=== PATIENT | female | born 1965 ===

== ENCOUNTER 2018-03-21 16:24 | Inpatient (IN) ==
[2018-03-21] MEDS ORDERED: PIPERACILLIN/TAZOBACTAM 3,375 MG in SODIUM CHLORIDE 0.9% 100 ML IV STA (16:51)
[2018-03-21] MEDS ORDERED: ACETAMINOPHEN 325 MG TABLET PO PRN (19:50)
[2018-03-21] MEDS ORDERED: GLUCAGON 1 MG VIAL IM PRN (19:50)
[2018-03-21] MEDS ORDERED: DEXTROSE 50% 25 GM/50 ML VIAL IV PRN (19:50)
[2018-03-21] MEDS ORDERED: ONDANSETRON 4 MG/2 ML VIAL IV PRN (19:50)
[2018-03-21] MEDS: INSULIN LISPRO 100 UNIT/ML SUBCUT SCH ×2 (20:27→23:28)
[2018-03-21] MEDS: MORPHINE 4 MG/1 ML VIAL IV PRN (21:15)
[2018-03-21] MEDS: PIPERACILLIN/TAZOBACTAM 3,375 MG in SODIUM CHLORIDE 0.9% 100 ML IV SCH (21:19)
[2018-03-22] MEDS: INSULIN LISPRO 100 UNIT/ML SUBCUT SCH ×4 (02:27→12:35)
[2018-03-22] MEDS: PIPERACILLIN/TAZOBACTAM 3,375 MG in SODIUM CHLORIDE 0.9% 100 ML IV SCH (03:55)
[2018-03-22] MEDS ORDERED: LIDOCAINE 1%/EPI INJ 20 ML VIAL ONE (06:13)
[2018-03-22] MEDS ORDERED: BUPIVACAINE MPF 0.25% /EPI 30 ML VIAL ONE (06:13)
[2018-03-22] MEDS ORDERED: TISSUE ADHESIVE 1 EACH APPLICATOR TOP ONE (06:13)
[2018-03-22 06:39] LABS: Osmolality,Calculated 292.7 MOS/KG (273-304); Potassium 4.8 MMOL/L (3.5-5.1)
[2018-03-22] MEDS ORDERED: SUGAMMADEX 200 MG/2 ML VIAL IV ONE (07:12)
[2018-03-22] MEDS ORDERED: PROPOFOL 200 MG/20 ML VIAL IV ONE (08:04)
[2018-03-22] MEDS ORDERED: ROCURONIUM 100 MG/10 ML VIAL IV ONE (08:04)
[2018-03-22] MEDS ORDERED: fentaNYL 100 MCG/2 ML VIAL ONE (08:04)
[2018-03-22] MEDS ORDERED: ONDANSETRON 4 MG/2 ML VIAL ONE (08:04)
[2018-03-22] MEDS ORDERED: SEVOFLURANE 1 UNIT/15 MINUTE INH ONE (08:04)
[2018-03-22] MEDS ORDERED: ONDANSETRON 4 MG/2 ML VIAL IV PRN (08:14)
[2018-03-22] MEDS: MORPHINE 10 MG/1 ML VIAL IV PRN ×2 (08:20→08:25)
[2018-03-22] MEDS ORDERED: PANTOPRAZOLE 40 MG TABLET PO SCH (09:00)
[2018-03-22] MEDS ORDERED: ASPIRIN EC 81 MG TABLET PO SCH (09:09)
[2018-03-22] MEDS ORDERED: MAGNESIUM OXIDE 400 MG TABLET PO SCH (09:09)
[2018-03-22] MEDS ORDERED: amLODIPine 10 MG TABLET PO SCH (09:09)
[2018-03-22] MEDS ORDERED: CARVEDILOL 25 MG TABLET PO SCH (09:09)
[2018-03-22] MEDS ORDERED: CALCIUM ACETATE 667 MG CAPSULE PO SCH (09:09)
[2018-03-22] MEDS ORDERED: IRBESARTAN 150 MG TABLET PO SCH (09:09)
[2018-03-22] MEDS ORDERED: ATORVASTATIN 40 MG TABLET PO SCH (09:09)
[2018-03-22] MEDS ORDERED: ISOSORBIDE MONONITRATE 30 MG TABLET PO SCH (09:09)
[2018-03-22] MEDS ORDERED: TERAZOSIN 2 MG CAPSULE PO SCH (09:09)
[2018-03-22] MEDS: MORPHINE 4 MG/1 ML VIAL IV PRN (09:40)
[2018-03-22] MEDS: CALCIUM ACETATE 667 MG CAPSULE PO SCH ×2 (11:01→11:04)
[2018-03-22 12:42] VITALS: BP 143/59
[2018-03-22] MEDS ORDERED: INSULIN GLARGINE 100 UNIT/ML SUBCUT SCH (21:00)
[2018-03-23] MEDS ORDERED: HEPARIN 5,000 UNIT/1 ML VIAL SUBCUT SCH (10:00)
== END 2018-03-22 15:45 | disposition home or self-care (01) | DRG 341 ==
LOC: EDBD → EDUNIT# → N.ED 16:24 → N.EDINP 18:09 → N.3E 19:29
PROVIDERS: ADMIT Surgery; ATTEND Surgery

== ENCOUNTER 2018-11-08 11:20 | Observation (INO) ==
[2018-11-08 18:00] LABS: Basophils % 0.4 % (0.0-0.8); Eosinophils % 0.6 % (0.00-10.9); Hematocrit 31.3 VOL% (35.7-47.0); Hemoglobin 9.9 GM/DL (12.0-16.0); Immature Granulocytes % 0.4 %; Immature Granulocytes Absolute 0.03 #; Lymphocytes # 1.4 10*3/uL (1.4-4.0); Mean Corpuscular HGB Conc 31.6 GM/DL (32-36); Mean Corpuscular Hemoglobin 31 PG (27-34); Mean Corpuscular Volume 99.1 FL (87-102); Mean Platelet Volume 11.5 FL (9.6-12.0); Monocytes # 0.5 10*3/uL (0.11-0.8); Monocytes % 7.2 % (1.7-12.7); Neutrophils # 5.2 10*3/uL (1.4-7.4); Neutrophils % 72.4 % (38.7-73.9); Platelet Count 70 T/CUMM (130-400); Red Blood Count 3.16 MC/CUMM (3.8-5.5); Red Cell Distribution Width 14.3 % (9.3-17.3); White Blood Count 7.2 T/CUMM (4-12)
[2018-11-08] MEDS ORDERED: CALCIUM ACETATE 667 MG CAPSULE PO SCH (18:00)
[2018-11-08 18:28] LABS: Platelet Estimate Decreased
[2018-11-08] MEDS ORDERED: OSELTAMIVIR 30 MG CAPSULE PO ONE (18:30)
[2018-11-08 19:26] LABS: Calcium 8.4 MG/DL (8.5-10.1); Osmolality,Calculated 293.8 MOS/KG (273-304); Potassium 4.3 MMOL/L (3.5-5.1)
[2018-11-08] MEDS: INSULIN GLARGINE 100 UNIT/ML SUBCUT SCH (20:50)
[2018-11-08] MEDS: CARVEDILOL 25 MG TABLET PO SCH (20:54)
[2018-11-08] MEDS: ATORVASTATIN 40 MG TABLET PO SCH (20:54)
[2018-11-08] MEDS ORDERED: ACETAMINOPHEN 500 MG TABLET PO PRN (21:29)
[2018-11-08] MEDS: ALBUTEROL/IPRATROPIUM 3 ML NEB RESP TX SCH (23:35)
[2018-11-09] MEDS: ALBUTEROL/IPRATROPIUM 3 ML NEB RESP TX SCH ×5 (03:45→21:20)
[2018-11-09] MEDS: CALCIUM ACETATE 667 MG CAPSULE PO SCH ×3 (08:56→19:16)
[2018-11-09] MEDS: ASPIRIN EC 81 MG TABLET PO SCH (08:56)
[2018-11-09] MEDS: ISOSORBIDE MONONITRATE 30 MG TABLET PO SCH (08:56)
[2018-11-09] MEDS: amLODIPine 10 MG TABLET PO SCH (08:56)
[2018-11-09] MEDS: CARVEDILOL 25 MG TABLET PO SCH ×2 (08:57→21:40)
[2018-11-09] MEDS: PANTOPRAZOLE 40 MG TABLET PO SCH (08:57)
[2018-11-09] MEDS: LOSARTAN 50 MG TABLET PO SCH (08:57)
[2018-11-09] MEDS: TERAZOSIN 2 MG CAPSULE PO SCH (08:57)
[2018-11-09] MEDS: MAGNESIUM OXIDE 400 MG TABLET PO SCH (08:57)
[2018-11-09] MEDS ORDERED: OSELTAMIVIR 30 MG CAPSULE PO SCH (18:00)
[2018-11-09] MEDS: INSULIN GLARGINE 100 UNIT/ML SUBCUT SCH (21:39)
[2018-11-09] MEDS: ATORVASTATIN 40 MG TABLET PO SCH (21:40)
[2018-11-10] MEDS: ALBUTEROL/IPRATROPIUM 3 ML NEB RESP TX SCH ×4 (00:41→11:09)
[2018-11-10 06:02] LABS: Risk Ratio 4.04; VLDL CHOLESTEROL 41.2 MG/DL
[2018-11-10] MEDS: ISOSORBIDE MONONITRATE 30 MG TABLET PO SCH (10:10)
[2018-11-10] MEDS: LOSARTAN 50 MG TABLET PO SCH (10:10)
[2018-11-10] MEDS: CALCIUM ACETATE 667 MG CAPSULE PO SCH ×2 (10:10→13:00)
[2018-11-10] MEDS: ASPIRIN EC 81 MG TABLET PO SCH (10:10)
[2018-11-10] MEDS: MAGNESIUM OXIDE 400 MG TABLET PO SCH (10:11)
[2018-11-10] MEDS: TERAZOSIN 2 MG CAPSULE PO SCH (10:11)
[2018-11-10] MEDS: PANTOPRAZOLE 40 MG TABLET PO SCH (10:11)
[2018-11-10] MEDS: amLODIPine 10 MG TABLET PO SCH (10:11)
[2018-11-10] MEDS: CARVEDILOL 25 MG TABLET PO SCH (10:11)
[2018-11-10 12:18] VITALS: BP 145/65
== END 2018-11-10 13:59 | disposition home or self-care (01) ==
LOC: N.5E → SUATTDRO 13:38
PROVIDERS: ADMIT Internal Medicine; ATTEND Hospitalist

== ENCOUNTER 2019-10-02 15:16 | Inpatient (IN) ==
[2019-10-02 16:40] LABS: Blood Urea Nitrogen 55 MG/DL (7-18); Calcium 9.2 MG/DL (8.5-10.1); Estimated Glom Filtration Rate 3 ML/MIN; Glucose 82 MG/DL (74-106); Troponin I 0.475 NG/ML (0.00-0.045)
[2019-10-02 16:45] LABS: INR 1.3; PT Patient Result 14.1 SECS (9.6-12.2); Partial Thromboplastin Time 26.9 SECS (20.8-36.0)
[2019-10-02] MEDS ORDERED: LEVOFLOXACIN INJ 750 MG in PREMIX 1 EACH IV STA (16:49)
[2019-10-02 17:02] LABS: Barbiturates Screen,Urine Negative (Negative); Benzodiazepines Screen,Urine Negative (Negative); Cannabinoid Screen,Urine Negative (Negative); Opiate Screen,Urine Positive (Negative); Phencyclidine Screen,Urine Negative (Negative)
[2019-10-02] MEDS ORDERED: ONDANSETRON 4 MG/2 ML VIAL IV PRN (18:31)
[2019-10-02] MEDS ORDERED: ACETAMINOPHEN 325 MG TABLET PO PRN (18:31)
[2019-10-02] MEDS ORDERED: DEXTROSE 50% 25 GM/50 ML VIAL IV PRN (18:31)
[2019-10-02] MEDS ORDERED: GLUCAGON 1 MG VIAL IM PRN (18:31)
[2019-10-02] MEDS ORDERED: ALBUTEROL 2.5 MG/3 ML NEB RESP TX PRN (18:31)
[2019-10-02] MEDS ORDERED: DEXTROSE 10% 250 ML BAG IV PRN (19:31)
[2019-10-02] MEDS: ALBUTEROL/IPRATROPIUM 3 ML NEB RESP TX SCH (21:20)
[2019-10-02] MEDS: ENOXAPARIN 30 MG/0.3 ML SYRINGE SUBCUT SCH (21:25)
[2019-10-02] MEDS: INSULIN REGULAR 100 UNIT/ML SUBCUT SCH (22:20)
[2019-10-03] MEDS: ALBUTEROL/IPRATROPIUM 3 ML NEB RESP TX SCH ×4 (01:00→19:13)
[2019-10-03] MEDS: INSULIN REGULAR 100 UNIT/ML SUBCUT SCH ×4 (07:30→23:47)
[2019-10-03 07:43] LABS: Basophils # 0.1 10*3/uL (0.0-0.2); Eosinophils # 0.5 10*3/uL (0.0-0.87); Eosinophils % 7.9 % (0.00-10.9); Hematocrit 33.7 VOL% (35.7-47.0); Hemoglobin 10.8 GM/DL (12.0-16.0); Immature Granulocytes % 0.8 %; Immature Granulocytes Absolute 0.05 #; Lymphocytes # 0.9 10*3/uL (1.4-4.0); Lymphocytes % 14.4 % (21.3-54.2); Mean Corpuscular Volume 102.1 FL (87-102); Mean Platelet Volume 10.9 FL (9.6-12.0); Monocytes % 5.6 % (1.7-12.7); NRBC # 0.07 10*3/uL; Neutrophils % 70.3 % (38.7-73.9); White Blood Count 6.2 T/CUMM (4-12)
[2019-10-03 07:53] LABS: Platelet Count 83 T/CUMM (130-400)
[2019-10-03 07:57] LABS: Albumin 2.7 G/DL (3.4-5.0); Osmolality,Calculated 288.8 MOS/KG (273-304); Total Protein 6.5 G/DL (6.4-8.3)
[2019-10-03 08:17] LABS: Hypochromasia Slight; Macrocytosis 1+; Platelet Estimate Decreased; Polychromasia Slight
[2019-10-03] MEDS: PANTOPRAZOLE 40 MG TABLET PO SCH (09:20)
[2019-10-03] MEDS ORDERED: CYCLOBENZAPRINE 10 MG TABLET PO PRN (11:47)
[2019-10-03] MEDS ORDERED: CALCIUM ACETATE 667 MG CAPSULE PO SCH (12:00)
[2019-10-03] MEDS ORDERED: hydrALAZINE 20 MG/1 ML VIAL IV PRN (12:22)
[2019-10-03] MEDS: cefTRIAXone 1,000 MG in SYRINGE 1 EACH IV SCH (12:36)
[2019-10-03] MEDS: CALCIUM ACETATE 667 MG CAPSULE PO SCH ×2 (12:36→17:30)
[2019-10-03] MEDS ORDERED: AZITHROMYCIN 250 MG TABLET PO ONE (13:00)
[2019-10-03] MEDS ORDERED: FUROSEMIDE 40 MG/4 ML VIAL IV SCH (16:00)
[2019-10-03] MEDS: ENOXAPARIN 30 MG/0.3 ML SYRINGE SUBCUT SCH (20:50)
[2019-10-03] MEDS ORDERED: INSULIN GLARGINE 100 UNIT/ML SUBCUT SCH (21:00)
[2019-10-03] MEDS: carvediloL 25 MG TABLET PO SCH (21:10)
[2019-10-04] MEDS: ALBUTEROL/IPRATROPIUM 3 ML NEB RESP TX SCH ×4 (00:54→20:19)
[2019-10-04] MEDS: INSULIN REGULAR 100 UNIT/ML SUBCUT SCH ×7 (01:35→23:56)
[2019-10-04 06:43] LABS: Basophils # 0.1 10*3/uL (0.0-0.2); Basophils % 0.8 % (0.0-0.8); Eosinophils # 0.4 10*3/uL (0.0-0.87); Eosinophils % 6.7 % (0.00-10.9); Hematocrit 32.7 VOL% (35.7-47.0); Hemoglobin 10.8 GM/DL (12.0-16.0); Immature Granulocytes % 0.8 %; Immature Granulocytes Absolute 0.05 #; Lymphocytes # 0.8 10*3/uL (1.4-4.0); Lymphocytes % 12.1 % (21.3-54.2); Mean Corpuscular Volume 99.7 FL (87-102); Mean Platelet Volume 10.9 FL (9.6-12.0); Monocytes % 6.2 % (1.7-12.7); NRBC # 0.11 10*3/uL; Neutrophils % 73.4 % (38.7-73.9); Platelet Count 97 T/CUMM (130-400); Red Blood Count 3.28 MC/CUMM (3.8-5.5); White Blood Count 6.3 T/CUMM (4-12)
[2019-10-04 06:55] LABS: Calcium 9.2 MG/DL (8.5-10.1); Osmolality,Calculated 275.4 MOS/KG (273-304)
[2019-10-04 07:30] LABS: Band Neutrophils 1 % (0-10); Eosinophils 7 % (0-10); Lymphocytes 10 % (20-55); Platelet Estimate Decreased; Segmented Neutrophils 77 % (50-85); Total Cells Counted 100
[2019-10-04 07:31] LABS: Anisocytosis 2+; Burr Cells Few; Macrocytosis 1+; Poikilocytosis Slight
[2019-10-04] MEDS: ASPIRIN EC 81 MG TABLET PO SCH (09:00)
[2019-10-04] MEDS: carvediloL 25 MG TABLET PO SCH ×2 (09:00→20:50)
[2019-10-04] MEDS: CALCIUM ACETATE 667 MG CAPSULE PO SCH ×3 (09:00→16:52)
[2019-10-04] MEDS: LOSARTAN 50 MG TABLET PO SCH (09:00)
[2019-10-04] MEDS: TERAZOSIN 2 MG CAPSULE PO SCH (09:00)
[2019-10-04] MEDS ORDERED: LEVOFLOXACIN INJ 500 MG in PREMIX 1 EACH IV SCH (09:00)
[2019-10-04] MEDS: amLODIPine 10 MG TABLET PO SCH (09:00)
[2019-10-04] MEDS: PANTOPRAZOLE 40 MG TABLET PO SCH (09:01)
[2019-10-04] MEDS: MAGNESIUM OXIDE 400 MG TABLET PO SCH ×2 (09:01→09:11)
[2019-10-04] MEDS: AZITHROMYCIN 250 MG TABLET PO SCH (09:01)
[2019-10-04] MEDS: ISOSORBIDE MONONITRATE 30 MG TABLET PO SCH (09:01)
[2019-10-04] MEDS: cefTRIAXone 1,000 MG in SYRINGE 1 EACH IV SCH (12:52)
[2019-10-04] MEDS: ENOXAPARIN 30 MG/0.3 ML SYRINGE SUBCUT SCH (20:04)
[2019-10-04] MEDS: DICLOFENAC 1% GEL 100 GM TUBE TOP SCH (23:46)
[2019-10-05] MEDS: ALBUTEROL/IPRATROPIUM 3 ML NEB RESP TX SCH ×4 (00:57→20:48)
[2019-10-05 05:59] LABS: Basophils # 0.1 10*3/uL (0.0-0.2); Basophils % 1.2 % (0.0-0.8); Eosinophils # 0.3 10*3/uL (0.0-0.87); Hematocrit 33.1 VOL% (35.7-47.0); Hemoglobin 10.9 GM/DL (12.0-16.0); Immature Granulocytes % 0.5 %; Immature Granulocytes Absolute 0.02 #; Lymphocytes # 0.7 10*3/uL (1.4-4.0); Lymphocytes % 16.2 % (21.3-54.2); Mean Corpuscular HGB Conc 32.9 GM/DL (32-36); Mean Corpuscular Volume 100.3 FL (87-102); Mean Platelet Volume 10.2 FL (9.6-12.0); Monocytes % 9.5 % (1.7-12.7); NRBC # 0.03 10*3/uL; Neutrophils % 65.6 % (38.7-73.9); Platelet Count 87 T/CUMM (130-400); Red Cell Distribution Width 15.5 % (9.3-17.3); White Blood Count 4.3 T/CUMM (4-12)
[2019-10-05 06:16] LABS: Calcium 9.1 MG/DL (8.5-10.1)
[2019-10-05 06:30] LABS: Band Neutrophils 1 % (0-10); Eosinophils 13 % (0-10); Lymphocytes 14 % (20-55); Segmented Neutrophils 69 % (50-85); Total Cells Counted 100
[2019-10-05 06:31] LABS: Anisocytosis 1+; Platelet Estimate Decreased; Polychromasia Few
[2019-10-05] MEDS: INSULIN REGULAR 100 UNIT/ML SUBCUT SCH ×4 (08:29→21:04)
[2019-10-05] MEDS: ISOSORBIDE MONONITRATE 30 MG TABLET PO SCH (09:00)
[2019-10-05] MEDS: CALCIUM ACETATE 667 MG CAPSULE PO SCH ×3 (09:00→17:40)
[2019-10-05] MEDS: PANTOPRAZOLE 40 MG TABLET PO SCH (09:00)
[2019-10-05] MEDS: LOSARTAN 50 MG TABLET PO SCH (09:00)
[2019-10-05] MEDS: amLODIPine 10 MG TABLET PO SCH (09:00)
[2019-10-05] MEDS: MAGNESIUM OXIDE 400 MG TABLET PO SCH (09:00)
[2019-10-05] MEDS: TERAZOSIN 2 MG CAPSULE PO SCH (09:00)
[2019-10-05] MEDS: ASPIRIN EC 81 MG TABLET PO SCH (09:00)
[2019-10-05] MEDS: carvediloL 25 MG TABLET PO SCH ×2 (09:01→20:59)
[2019-10-05] MEDS: AZITHROMYCIN 250 MG TABLET PO SCH (09:01)
[2019-10-05] MEDS: DICLOFENAC 1% GEL 100 GM TUBE TOP SCH ×2 (12:46→15:27)
[2019-10-05] MEDS: cefTRIAXone 1,000 MG in SYRINGE 1 EACH IV SCH (12:47)
[2019-10-05] MEDS: ENOXAPARIN 30 MG/0.3 ML SYRINGE SUBCUT SCH (21:03)
[2019-10-06] MEDS: DICLOFENAC 1% GEL 100 GM TUBE TOP SCH ×3 (00:01→16:16)
[2019-10-06] MEDS: ALBUTEROL/IPRATROPIUM 3 ML NEB RESP TX SCH ×3 (00:14→14:07)
[2019-10-06 05:08] LABS: Basophils % 0.6 % (0.0-0.8); Eosinophils # 0.3 10*3/uL (0.0-0.87); Eosinophils % 6.3 % (0.00-10.9); Hematocrit 31.3 VOL% (35.7-47.0); Hemoglobin 10.2 GM/DL (12.0-16.0); Immature Granulocytes % 0.4 %; Immature Granulocytes Absolute 0.02 #; Lymphocytes # 1.1 10*3/uL (1.4-4.0); Lymphocytes % 23.1 % (21.3-54.2); Mean Corpuscular HGB Conc 32.6 GM/DL (32-36); Mean Platelet Volume 10.7 FL (9.6-12.0); Monocytes % 10.7 % (1.7-12.7); NRBC # 0.03 10*3/uL; Neutrophils % 58.9 % (38.7-73.9); Platelet Count 87 T/CUMM (130-400); Red Cell Distribution Width 15.9 % (9.3-17.3); White Blood Count 4.8 T/CUMM (4-12)
[2019-10-06 05:27] LABS: Calcium 9.6 MG/DL (8.5-10.1); Osmolality,Calculated 278.1 MOS/KG (273-304)
[2019-10-06 05:32] LABS: Macrocytosis 1+
[2019-10-06 05:33] LABS: Hypochromasia Slight; Ovalocytes Slight; Platelet Estimate Decreased; Polychromasia Slight
[2019-10-06] MEDS: INSULIN REGULAR 100 UNIT/ML SUBCUT SCH ×3 (07:23→16:16)
[2019-10-06] MEDS: carvediloL 25 MG TABLET PO SCH (08:57)
[2019-10-06] MEDS: MAGNESIUM OXIDE 400 MG TABLET PO SCH (08:58)
[2019-10-06] MEDS: ASPIRIN EC 81 MG TABLET PO SCH (08:58)
[2019-10-06] MEDS: CALCIUM ACETATE 667 MG CAPSULE PO SCH ×3 (08:58→16:42)
[2019-10-06] MEDS: TERAZOSIN 2 MG CAPSULE PO SCH (08:58)
[2019-10-06] MEDS: PANTOPRAZOLE 40 MG TABLET PO SCH (08:59)
[2019-10-06] MEDS: ISOSORBIDE MONONITRATE 30 MG TABLET PO SCH (08:59)
[2019-10-06] MEDS: LOSARTAN 50 MG TABLET PO SCH (08:59)
[2019-10-06] MEDS: amLODIPine 10 MG TABLET PO SCH (08:59)
[2019-10-06] MEDS: AZITHROMYCIN 250 MG TABLET PO SCH (08:59)
[2019-10-06] MEDS: cefTRIAXone 1,000 MG in SYRINGE 1 EACH IV SCH (13:38)
[2019-10-06 16:09] VITALS: BP 177/65
== END 2019-10-06 18:56 | disposition home or self-care (01) | DRG 193 ==
LOC: EDBD → EDUNIT# → N.ED 15:16 → N.EDINP 18:31 → SUATTDRO 18:31 → N.CC 19:25 → N.2E 10-05 17:56
PROVIDERS: ADMIT Internal Medicine; ATTEND Hospitalist